=== PATIENT | male | born 1930 | race Caucasian/White ===

== ENCOUNTER → 2020-08-12 | Outpatient (CLI) | payer MEDICARE ==
--- NOTE | 2020-08-12 15:52 | KCIC ---
EXAM: EYE FOR FOREIGN BODY 08/12/2020 3:40 PM CLINICAL INDICATION:Screening for MRI COMPARISON:None TECHNIQUE:2 views of the orbits FINDINGS:No metallic foreign body. Paranasal sinuses are clear. No acute osseous abnormality. IMPRESSION:No metallic foreign body in the orbits. Electronically signed by: Mica Helms MD (08/12/2020 3:50 PM) [id number]
--- NOTE | 2020-08-12 17:07 | KCIC ---
EXAMINATION: Magnetic resonance imaging (MRI) of the brain and brainstem without contrast 08/12/2020 3:30 PM HISTORY: Transient ischemic attack. Recent episode of slurred speech that has subsided. TECHNIQUE: Multiplanar multi-weighted MRI of the brain and brainstem was performed without intravenous contrast using the general brain protocol. COMPARISON: None available. FINDINGS: The scalp and calvarium are normal. The superior sagittal sinus demonstrates normal venous flow. The corpus callosum is normal in shape and signal intensity. The posterior fossa is unremarkable. The pituitary and sella are normal. The brainstem and craniocervical junction are unremarkable. There are T2/FLAIR signal hyperintense foci in the [place], periventricular and subcortical white matter with areas of confluence most suggestive of moderate chronic small vessel ischemic changes. Diffusion weighted images reveal no hyperintensities to suggest acute cerebral infarction. The susceptibility weighted sequences reveal no evidence of acute or chronic hemorrhage. Ventricles, sulci and basal cisterns are prominent compatible with mild generalized cerebral volume loss The paranasal sinuses are normal. The visualized portions of the mastoids are unremarkable. The orbits appear normal with exception of bilateral lens replacement. Normal flow voids are demonstrated in the carotid arteries and basilar artery. IMPRESSION: 1. No evidence for acute or subacute ischemia. 2. There are T2/FLAIR signal hyperintense foci in the [place], periventricular and subcortical white matter with areas of confluence most suggestive of moderate chronic small vessel ischemic changes. 3. Mild generalized cerebral volume loss. Electronically signed by: Kait Pendleton MD (08/12/2020 5:04 PM) [facility]
== END ==
LOC: KCIC MRI 14:46
PROVIDERS: ATTEND Internal Medicine
DX: G45.8 Other transient cerebral ischemic attacks and related syndromes (principal)
CPT/HCPCS: 70030; 70551

== ENCOUNTER → 2020-08-25 | Outpatient (CLI) | payer MEDICARE ==
--- NOTE | 2020-08-26 02:14 | RAD ---
Carotid Doppler dated 08/25/2020. Comparison none. Clinical Indication: Speech difficulty. Findings: Grayscale, color flow and spectral waveform analysis was performed. No significant plaque or intimal thickening. No focal stenosis. The waveforms are within normal limits. Flow within the bilateral vert ebral arteries is antegrade. Velocity measurements are as follows (centimeters per second ) Peak systolic velocity right left ICA 92 66 EDV 23 17 CCA 101 133 ICA/CCA ratio 0.91 0.55 Impression: No evidence of hemodynamically significant carotid stenosis. Stenosis calculations for carotid ultrasound studies are derived from validated velocity criteria wh ich are known to correlate with the NASCET methodology. Electronically signed by: Dougie Lerner MD (08/26/2020 1:41 AM) JAMAL
== END ==
LOC: US 14:51
PROVIDERS: ATTEND Internal Medicine
DX: G45.9 Transient cerebral ischemic attack, unspecified (principal); R47.9 Unspecified speech disturbances
CPT/HCPCS: 93880

== ENCOUNTER → 2020-09-15 | Outpatient (CLI) | payer MEDICARE ==
--- NOTE | 2020-09-15 15:13 | CARD ---
MR#: [id number] Date of Study: 09/15/2020 Ordering Physician: MARTA SAGASTUME, Referring Physician: MARTA SAGASTUME, Tech: Yesi Warren LESLIE APPROVED REPORT EXAM: Two-dimensional and M-mode echocardiogram with Doppler and color Doppler. Other Information Quality : AverageHR: 70bpm Rhythm : NSR INDICATION CAD 2D DIMENSIONS Left Atrium(2D)4.2 (1.6-4.0cm)IVSd1.1 (0.7-1.1cm) Aortic Root(2D)3.2 (2.0-3.7cm)LVDd4.3 (3.9-5.9cm) LVOT Diameter2.1 (1.8-2.4cm)PWd1.0 (0.7-1.1cm) IVSs1.4 (0.8-1.2cm)LVDs2.7 (2.5-4.0cm) FS (%) 36.3 %PWs1.1 (0.8-1.2cm) SV53.6 mlLVEF(%)66.3 (>50%) Aortic Valve AoV Peak Ry.127.9cm/sAoV VTI25.2cm AO Peak GR.6.5mmHgLVOT Peak Ry.82.9cm/s LVOT VTI 18.83cmAO Mean GR.3mmHg MITRA (VMAX)1.85yd3DXJ (VTI)2.50cm2 AI P 1/2 [id number] Mitral Valve MV E Oiytiadg55.5cm/sMV DECEL [id number] MV A Wbpphusb46.4cm/sMV RYH58ta E/A Ratio1.2MVA (PHT)4.41cm2 TDI E/Lateral E'7.2E/Medial E'8.7 Pulmonary Valve PV Peak Wjgnxxiz794.9cm/sPV Peak Grad.5mmHg Tricuspid Valve TR P. Uolmzosp139ie/sTR Peak Gr.31mmHg Pulmonary Vein S1 Pmlrpdgm89.0cm/sD2 Fotwwera22.0cm/s PVa [id number] LEFT VENTRICLE The left ventricle is normal size. There is normal left ventricular wall thickness. The left ventricu lar systolic function is normal and the ejection fraction is within normal range. Estimated ejection fraction 60-65%. There is normal LV segmental wall motion. The left ventricular diastolic function an d filling is normal for age. RIGHT VENTRICLE The right ventricle is normal size. There is normal right ventricular wall thickness. The right ventr icular systolic function is normal. ATRIA The left atrium size is normal. The right atrium size is normal. The interatrial septum is intact wit h no evidence for an atrial septal defect or patent foramen ovale as noted on 2-D or Doppler imaging. AORTIC VALVE The aortic valve is normal in structure and function. Doppler and Color Flow revealed trace aortic re gurgitation. There is no significant aortic valvular stenosis. MITRAL VALVE The mitral valve is normal in structure and function. There is no evidence of mitral valve prolapse. There is no mitral valve stenosis. Doppler and Color-flow revealed mild mitral regurgitation. TRICUSPID VALVE The tricuspid valve is normal in structure and function. Doppler and Color Flow revealed trace tricus pid regurgitation. There is no tricuspid valve stenosis. PULMONIC VALVE Doppler and Color Flow revealed mild pulmonic valvular regurgitation. There is no pulmonic valvular s tenosis. GREAT VESSELS The aortic root is normal in size. The ascending aorta is normal in size. The IVC is normal in size a nd collapses >50% with inspiration. PERICARDIAL EFFUSION There is no evidence of significant pericardial effusion. Critical Notification Critical Value: No <Conclusion> The left ventricular systolic function is normal and the ejection fraction is within normal range. E stimated ejection fraction 60-65%. There is normal LV segmental wall motion. Signed by : Ino Norris, Electronically Approved : 09/15/2020 15:13:15
== END ==
LOC: ECHO 10:38
PROVIDERS: ATTEND Internal Medicine
DX: I08.8 Other rheumatic multiple valve diseases (principal); I25.10 Atherosclerotic heart disease of native coronary artery without angina pectoris; Z86.73 Personal history of transient ischemic attack (TIA), and cerebral infarction without residual deficits
CPT/HCPCS: 93306